=== PATIENT | female | born 1995 ===

== ENCOUNTER 2018-04-07 20:53 | Emergency (ER) | payer OTHER ==
--- NOTE | 2018-04-07 20:57 | UC ---
Bite Injury/Animal HPI - HPI Summary HPI Summary: 22 yo female presents with cat bite to RIGHT hand while at work. 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 The cat's rabies on 10/20/17, but the cat is able to monitored. Pt is unsure of other vaccination. Pt's last tetanus was 2 years ago per pt. - History of Current Complaint Stated Complaint: CAT BITE Time Seen by Provider: 04/07/18 20:56 Hx Obtained From: Patient Severity Currently: Mild Severity Initially: Mild Pain Intensity: 2 Pain Scale Used: 0-10 Numeric Onset/Duration: Sudden Onset Type of Bite: Animal Character: Abrasion/Laceration - Allergies/Home Medications Allergies/Adverse Reactions: Allergies Allergy/AdvReac Type Severity Reaction Status Date / Time No Known Allergies Allergy Verified 04/07/18 21:07 Home Medications: Home Medications Norethindrone-E.estradiol-Iron [June Fe 24 Tablet] 1 tab PO DAILY 04/07/18 [ History Confirmed 04/07/18] PMH/Surg Hx/FS Hx/Imm Hx - Additional Past Medical History Additional PMH: None - Surgical History Surgical History: None Review of Systems Constitutional: Negative Skin: Other - Cat bite right hand Respiratory: Negative Cardiovascular: Negative Gastrointestinal: Negative Neurovascular: Negative Neurological: Negative Psychological: Negative All Other Systems Reviewed And Are Negative: Yes Physical Exam - Summary Physical Exam Summary: GENERAL: NAD. WDWN. No pain distress. SKIN: RIGHT HAND: dorsal web spacing between thumb and index finger with 1.0cm very superficial laceration. Right radial aspect of 5th finger with very superficial scratch. Clean. No active bleeding or puncture wound. No erythema or edema. CHEST: No accessory muscle use. Breathing comfortably and in no distress. CV: Pulses intact. Cap refill <2seconds MSK: Right hand and all fingers FROM without pain NEURO: Alert. PSYCH: Age appropriate behavior. Triage Information Reviewed: Yes Vital Signs: Vital Signs: Temp Pulse Resp BP Pulse Ox 98.8 F 64 12 136/95 100 04/07/18 21:04 04/07/18 21:04 04/07/18 21:04 04/07/18 21:04 04/07/18 21:04 Vital Signs Reviewed: Yes Bite Injury Course/Dx - Course Course Of Treatment: Cat bite to right hand. Wound cleansed with NS. Appears to be more of a superficial abrasion than a puncture wound, but will still rx for Augmentin as per guidelines. Will have her f/u with the health department - Differential Dx/Diagnosis Provider Diagnoses: Cat bite Discharge - Sign-Out/Discharge Documenting (check all that apply): Patient Departure All imaging exams completed and their final reports reviewed: No Studies - Discharge Plan Condition: Stable Disposition: HOME Prescriptions: Amoxicillin/Clavulanate TAB* [Augmentin TAB 875*] 875 mg PO BID #14 tab Patient Education Materials: Animal Bite (ED) Referrals: No Primary Care Phys,NOPCP [Primary Care Provider] - Additional Instructions: If you develop a fever, shortness of breath, chest pain, new or worsening symptoms - please call your PCP or go to the ED. 1) Keep the area covered with a band-aid until well healed - Billing Disposition and Condition Condition: STABLE Disposition: Home
== END 2018-04-07 21:35 | disposition home or self-care (01) ==
LOC: UCEAST 20:53
DX: S70.361A Insect bite (nonvenomous), right thigh, initial encounter (principal); W57.XXXA Bitten or stung by nonvenomous insect and other nonvenomous arthropods, initial encounter; Y92.9 Unspecified place or not applicable
CPT/HCPCS: 99202; G0463